=== PATIENT | male | born 1970 | race American Indian/Alaskan Native ===

== ENCOUNTER 2020-03-10 11:41 | Emergency (ER) | payer OTHER ==
[~2020-03-10] VITALS: Ht 188 cm; Wt 138.8 kg
[~2020-03-10 11:41] MED LIST: ZYRTEC-D TABLE1 EACH PO
[2020-03-10] MEDS ORDERED: DILTIAZEM 24HR180 M1 PO (14:53)
[2020-03-10] MEDS ORDERED: LOSARTAN POTASS50 MG PO (14:53)
== END 2020-03-10 16:52 | disposition home or self-care (01) ==
LOC: ED 11:41
DX: T15.01XA Foreign body in cornea, right eye, initial encounter (principal); I10 Essential (primary) hypertension; Z79.899 Other long term (current) drug therapy; X58.XXXA Exposure to other specified factors, initial encounter
CPT/HCPCS: 65222; 99283-25